=== PATIENT | female | born 1985 | race Two or more races ===

== ENCOUNTER 2017-10-04 04:44 | Emergency (ER) | payer OTHER ==
[~2017-10-04] VITALS: Ht 165.1 cm; Wt 65.0 kg
[2017-10-04 04:53] VITALS: Ht 165.1 cm; Wt 65.0 kg
[2017-10-04 05:56] VITALS: BP 121/68
== END 2017-10-04 05:56 | disposition home or self-care (01) ==
LOC: ED 04:44
DX: N39.0 Urinary tract infection, site not specified (principal)